=== PATIENT | female | born 1965 | race American Indian/Alaskan Native ===

== ENCOUNTER 2017-04-19 14:39 | Outpatient (CLI) | payer MEDICAID ==
--- NOTE | 2017-04-19 15:47 | XRay Report ---
Right knee: Pain. Standing views demonstrates periarticular spurring of the medial and lateral joint compartments. There is a loose body in the anterior lateral compartment and a questionable small loose body just lateral to the eminence. There is mild flattening of the medial articular surface. The joint spaces appear generally aligned and there is good alignment of the knee joint. Superior and inferior articular spurs are present on the patella. No swelling and no effusion noted. Impression: 1. Loose body in lateral compartment. 2. Degenerative bone changes in both compartments. 3. Flattening of the medial condyle articular surface.
== END 2017-04-19 14:40 | disposition home or self-care (01) ==
LOC: SPVIMAG 14:39
PROVIDERS: ATTEND Orthopaedic Surgery Sports Medicine
DX: M17.11 Unilateral primary osteoarthritis, right knee (principal)